=== PATIENT | female | born 1965 | race Caucasian/White ===

== ENCOUNTER 2021-07-23 17:31 | Emergency (ER) | payer MEDICARE, BC ==
[~2021-07-23] VITALS: Ht 157.5 cm; Wt 78.9 kg
[~2021-07-23 17:31] MED LIST: ALLERGY RELIEF10 M1 PO; CYCLOBENZAPRINE10 MG PO; CYCLOBENZAPRINE5 MG PO; DILAUDID4 MG PO; ESTRADIOL1 EAC1 TD; FENOFIBRATE160 MG PO; LEVOTHYROXINE125 MCG PO; LORAZEPAM0.5 MG PO; LOVASTATIN20 MG PO; METHADONE HCL5 MG PO; METOPROLOL TART50 MG PO; OMEPRAZOLE20 MG PO; OMEPRAZOLE40 MG PO; OXYCODONE HCL5 MG PO; OXYCODONE-ACET1 EAC1 PO; OXYCONTIN20 MG PO; PROAIR HFA8.5 GM INH; VENLAFAXINE HC100 MG PO; VENLAFAXINE HC150 M1 PO; XARELTO10 MG PO
--- OUTSIDE RECORDS SUMMARY | 2021-07-23 17:34 | XMS ---
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 Aidan has no Care Guidelines for this patient. [facility] VISIT COUNT (12 MO.) 1 ROSEMARIE [place] TOTAL 1 NOTE: Visits indicate total known visits. ED/C VISIT TRACKING (12 MO.) 07/23/2021 17:32 [facility] [place] TYPE: Emergency COMPLAINT: - SOB,RAPID HEART RATE INPATIENT VISIT TRACKING (12 MO.) No inpatient visits to display in this time frame [id number]
[2021-07-23] MEDS ORDERED: AMLODIPINE-OLM1 EAC1 PO (18:20)
[2021-07-23] MEDS ORDERED: PRINIVIL20 MG PO (18:20)
[2021-07-23] MEDS ORDERED: ASMANEX HFA13 G1 IH (18:21)
[2021-07-23] MEDS ORDERED: REMERON15 MG PO (18:24)
[2021-07-23] MEDS ORDERED: HYDROCHLOROTH12.5 M1 PO (18:24)
[2021-07-23] MEDS ORDERED: ALLOPURINOL100 MG (18:25)
[2021-07-23] MEDS ORDERED: LEVOTHYROXINE100 MC2 PO (18:27)
--- NOTE | 2021-07-24 21:18 | EKG ---
[facility] [address] [facility] [place] [address] Signed Sinus rhythm with premature ventricular complexes Prolonged QT Abnormal ECG No previous ECGs available Confirmed by KRYS BUTLER DO ([id number]) on 07/24/2021 9:18:35 PM Electronically Signed By: KRYS BUTLER DO 07/24/212117 PATIENT NAME: RASHID KNOTT Electrocardiogram DATE OF : 65 PHYSICIAN: KRYS BUTLER DO REPORT #: [id number] REPORT IS CONFIDENTIAL AND NOT TO BE RELEASED WITHOUT AUTHORIZATION
== END 2021-07-23 20:31 | disposition home or self-care (01) ==
LOC: ED 17:31
DX: R06.02 Shortness of breath (principal); E78.00 Pure hypercholesterolemia, unspecified; E03.9 Hypothyroidism, unspecified; I12.9 Hypertensive chronic kidney disease with stage 1 through stage 4 chronic kidney disease, or unspecified chronic kidney disease; N18.4 Chronic kidney disease, stage 4 (severe); J45.909 Unspecified asthma, uncomplicated; F17.200 Nicotine dependence, unspecified, uncomplicated; Z88.6 Allergy status to analgesic agent; Z88.8 Allergy status to other drugs, medicaments and biological substances; Z88.5 Allergy status to narcotic agent; Z79.899 Other long term (current) drug therapy
CPT/HCPCS: 71045; 80053; 83880; 84443; 84484; 85025; 93005; 93010; 99285-25

== ENCOUNTER 2025-08-01 06:00 | Day surgery (SDC) | payer MEDICARE, OTHER ==
[2025-07-23 16:45] VITALS: BP 117/69
[~2025-08-01] VITALS: Ht 157.5 cm; Wt 82.9 kg
[~2025-08-01 06:00] MED LIST changes: +ALLOPURINOL100 MG; +AMLODIPINE-OLM1 EAC1 PO; +ASMANEX HFA13 G1 IH; +BREZTRI AEROS10.7 GM INH; +BUPRENORPHINE HC2 MG SL; +CARAFATE1 GM PO; +FLONASE ALLERG9.9 ML NAS; +HYDROCHLOROTH12.5 M1 PO; +LACTATED RINGER'S 1,000 ML IV SCH; +LEVOTHYROXINE100 MC2 PO; +METOPROLOL SUCC25 MG PO; +PRINIVIL20 MG PO; +REMERON15 MG PO; +ZEPBOUND10 MG/0.5 SUB-Q
[2025-08-01] MEDS ORDERED: DEXAMETHASONE SOD PHOS 4 MG/ML VIAL ONE (06:14)
[2025-08-01 06:22] VITALS: BP 115/67
[2025-08-01] MEDS ORDERED: LIDOCAINE HCL 2% 5 ML SDV ONE (06:27)
[2025-08-01] MEDS ORDERED: MIRTAZAPINE7.5 MG PO (06:30)
[2025-08-01] MEDS ORDERED: TOPIRAMATE50 MG PO (06:30)
[2025-08-01] MEDS ORDERED: SEVOFLURANE 250 ML BTL ONE (06:30)
[2025-08-01] MEDS ORDERED: fentaNYL citrate 100 MCG/2 ML VIAL ONE ×2 (06:56→08:16)
[2025-08-01] MEDS ORDERED: CEFAZOLIN SODIUM 1 GM in SODIUM CHLORIDE 0.9% 100 ML IV SCH (07:00)
[2025-08-01] MEDS ORDERED: LIDOCAINE HCL 1% 5 ML SDV INJ ONE (07:00)
[2025-08-01] MEDS ORDERED: IBLOOD GLUCOSE TEST STRIP 1 EA TEST VI PRN ×2 (07:00→07:45)
[2025-08-01] MEDS ORDERED: fentaNYL citrate 50 MCG/ML SDV IV PRN (07:45)
[2025-08-01] MEDS ORDERED: NALOXONE HCL 0.4 MG SYR IV PRN (07:45)
[2025-08-01] MEDS ORDERED: ACETAMINOPHEN 1,000 MG/100 ML VIAL ONE (08:16)
--- NOTE | 2025-08-01 09:05 | NUR ---
08/01/25 0905 Tana Toussaint 0900: PT ARRIVES TO PACU AWAKE, BUT DROWSY. SHE IS CONNECTED TO MONITORS. REPORT RECEIVED FROM NETWORK LIAISON AND REFUGE WORKER. LE 09: PT IS DENYING PAIN AND NAUSEA.
[2025-08-01 09:31] VITALS: BP 130/69
--- NOTE | 2025-08-02 05:55 | OR ---
[facility] [address], [place] [address] Signed DATE OF OPERATION: 08/01/2025 SURGEON: Rick Dumont DPM PREOPERATIVE DIAGNOSES: 1. Hammertoe, left foot. 2. Pain, left foot. 3. Contracture, left foot. POSTOPERATIVE DIAGNOSES: 1. Hammertoe, left foot. 2. Pain, left foot. 3. Contracture, left foot. PROCEDURES: 1. Hammertoe correction, left hallux with interphalangeal joint fusion. 2. Hammertoe correction, left second digit with proximal interphalangeal joint fusion. 3. Tenotomy, left foot. INPATIENT NURSING AIDE SURGEON: Maggy Bocanegra DPM. SEASONAL PACKAGE HANDLER: [place] ANESTHESIA: IV general with local block, left foot. SPECIMEN TO PATHOLOGY: None. PROCEDURE IN DETAIL: The patient was brought to the operating room and placed on the table in the supine position. Anesthesia Department administered IV sedation after which a local block was given to the left foot using a total of 7 mL 1:1 mixture, 2% lidocaine plain and 0.5% ropivacaine plain, this was reinforced intraoperatively with the same injectables using an additional 1 mL. The left leg and foot was then prepped and draped in the usual sterile manner and an Esmarch was used for hemostasis. Electronically Signed By: RICK DUMONT DPM 08/02/25 0555 PATIENT NAME: RASHID KNOTT OPERATIVE REPORT DATE OF : 65 REPORT #: [id number] PHYSICIAN: RICK DUMONT DPM PCP: ALBA MARTINEZ MD REPORT IS CONFIDENTIAL AND NOT TO BE RELEASED WITHOUT AUTHORIZATION [facility] [address], [place] [address] Signed Procedure #1: Hammertoe correction, left hallux with interphalangeal joint fusion. Attention was initially directed to the dorsal left hallux IPJ area where an S shaped incision was made over the joint extending distal, medial and proximal lateral. Soft tissues were reflected to expose the joint and joint surfaces then resected using power instrumentation. A K-wire was then used to temporarily secure the position of the fusion site and this was then evaluated and deemed well aligned. The fusion site then fixated with a hammer tube implant which was placed across the joint as well as a bone staple to the medial side of the dorsal IPJ fusion site. Surgical site was then irrigated with normal saline. Tendon reapproximated with 3-0 Vicryl, then skin closed using 5-0 nylon monofilament suture. Procedure #2: Hammertoe correction, left second digit with PIPJ fusion. Attention was directed to the dorsal PIPJ left second digit where an elliptical incision was made directly over the proximal interphalangeal joint with the ellipse of skin removed, a transverse tenotomy and capsulotomy was made opening the joint and reflecting soft tissues proximally to expose the head of the proximal phalanx which was then resected using power instrumentation. Soft tissues then reflected distally and the cartilaginous surface of the base of the distal phalanx then resected as well, using the reamer. Position to the toe examined, then the drill for the implant was used to the proximal and distal sides of the joint and the joint implant placed and secured showing good position and alignment to the toe. The surgical site then irrigated with normal saline and the extensor tendon reapproximated with 4-0 Vicryl and then skin closed using 5-0 nylon monofilament suture. Dressings placed on the toes consisting of Adaptic, Betadine-soaked gauze, dry gauze, as well as Flexicon and Coban for mild compression as well as to splint the position to the toes. Procedure #3: Tenotomy, left foot. The extensor tendon to the left second digit was noted to be very tight and required a release for adequate correction of the deformity . This was performed about 2-3 cm proximal to the second MTPJ. This was a percutaneous tenotomy allowing significantly improved position to the toe. Tenotomy site was closed with 5-0 nylon monofilament suture as well. The second digit was also noted to be extremely medially deviated and therefore a medial capsule release was necessary as well. This was also performed percutaneously at this time and significantly improved the position to the second digit in the horizontal plane. Electronically Signed By: RICK DUMONT DPM 08/02/25 0555 PATIENT NAME: RASHID KNOTT OPERATIVE REPORT DATE OF : 65 REPORT #: [id number] PHYSICIAN: RICK DUMONT DPM PCP: ALBA MARTINEZ MD REPORT IS CONFIDENTIAL AND NOT TO BE RELEASED WITHOUT AUTHORIZATION [facility] [address] [place] [id number] Signed INTRAOPERATIVE COMPLICATIONS: None. ESTIMATED BLOOD LOSS: Less than 5 mL. SHIREEN Hu/NILSL /[id number] Copies: ~ Electronically Signed By: RICK DUMONT DPM 08/02/25 0555 PATIENT NAME: RASHID KNOTT OPERATIVE REPORT DATE OF : 65 REPORT #: [id number] PHYSICIAN: RICK DUMONT DPM PCP: ALBA MARTINEZ MD REPORT IS CONFIDENTIAL AND NOT TO BE RELEASED WITHOUT AUTHORIZATION
--- NOTE | 2025-08-02 22:01 | EKG ---
[facility] [address] [facility] [place] [address] Signed Normal sinus rhythm Normal ECG When compared with ECG of 23-JUL-2021 17:44, premature ventricular complexes are no longer present Confirmed by Melina Berg MD () on 08/02/2025 10:00:54 PM Electronically Signed By: MELINA BERG MD 08/02/252200 PATIENT NAME: RASHID KNOTT Electrocardiogram DATE OF : 65 PHYSICIAN: MELINA BERG MD REPORT #: [id number] REPORT IS CONFIDENTIAL AND NOT TO BE RELEASED WITHOUT AUTHORIZATION
== END 2025-08-01 09:52 | disposition home or self-care (01) ==
LOC: DS 06:00
PROVIDERS: ATTEND Podiatrist Foot Surgery
PROC: 0LNW3ZZ Release Left Foot Tendon, Percutaneous Approach (ICD-10-PCS; 2025-08-01)
PROC: 0SGQ04Z Fusion of Left Toe Phalangeal Joint with Internal Fixation Device, Open Approach (ICD-10-PCS; principal; 2025-08-01 07:00)
DX: M20.42 Other hammer toe(s) (acquired), left foot (principal); M24.575 Contracture, left foot; M19.90 Unspecified osteoarthritis, unspecified site; I10 Essential (primary) hypertension; J45.909 Unspecified asthma, uncomplicated; Z79.51 Long term (current) use of inhaled steroids; Z79.899 Other long term (current) drug therapy; Z87.891 Personal history of nicotine dependence; Z88.5 Allergy status to narcotic agent; Z88.6 Allergy status to analgesic agent
CPT/HCPCS: 73630; 93005; 93010; J0131; J0690; J1100; J2003; J2704; J3010; J7121